=== PATIENT | female | born 1945 | race Caucasian/White ===

== ENCOUNTER 2016-04-07 09:00 | Inpatient (IN) | payer MEDICARE, OTHER ==
[~2016-04-07] VITALS: Ht 160 cm; Wt 129.5 kg
[~2016-04-07 09:00] MED LIST: CO Q-10100 MG PO; COZAAR100 MG PO; CYMBALTA60 MG PO; KLOR-CON 1010 MEQ PO; LEVOTHYROXINE50 MCG PO; LIPITOR40 MG PO; LIPITOR80 MG PO; NIASPAN500 MG PO; NORCO 7.5/325 T1 TA1 PO; NORVASC5 MG PO; OXYBUTYNIN CHLOR5 MG PO; PATADAY2.5 ML EACH EYE; PROTONIX40 MG PO; SINGULAIR10 MG PO; VENTOLIN HFA18 GM INH; VITAMIN D31000 UNIT PO; VOLTAREN100 GM TOPICAL; VOLTAREN100 MG PO; ZANAFLEX4 MG PO
[2016-04-07 09:18] LABS: ANION GAP 13.9 mmol/L (8-16); CALCIUM 9.2 mg/dL (8.5-10.1); CARBON DIOXIDE 28.5 mmol/L (21.0-32.0); CREATININE - SERUM 1.2 mg/dL (0.6-1.3); POTASSIUM - SERUM 3.4 mmol/L (3.5-5.1)
[2016-04-07 10:11] LABS: APTT 34.3 SECONDS (22.8-39.4); INR 0.96 (0.85-1.17); PROTIME 12.6 SECONDS (11.6-15.0)
[2016-04-07 11:50] LABS: APPEARANCE HAZY (CLEAR); BILIRUBIN NEGATIVE (NEGATIVE); COLOR YELLOW (YELLOW); GLUCOSE NEGATIVE (NEGATIVE); KETONE NEGATIVE (NEGATIVE); LEUKOCYTE ESTERASE NEGATIVE (NEGATIVE); NITRITE NEGATIVE (NEGATIVE); PROTEIN NEGATIVE (NEGATIVE); SPECIFIC GRAVITY 1.015 (1.005-1.020)
[2016-04-07 12:48] LABS: BASOPHILS 0.4 % (0.0-2.0); EOSINOPHILS 5.4 % (0-7); HEMATOCRIT 39.2 % (36.0-48.0); HEMOGLOBIN 12.7 g/dL (12-16); IMMATURE GRANULOCYTES 0.1 % (0-5); LYMPHOCYTES 35.6 % (15-50); MCH 31.6 pg (26.0-34.0); MCHC 32.4 g/dL (31.0-37.0); MCV 97.5 fL (80.0-100.0); MEAN PLATELET VOLUME 10.6 fL (7.4-10.4); MONOCYTES 12.7 % (2-11); NEUTROPHILS 45.8 % (40-80); PLATELET COUNT 272 10x3/uL (130-400); RBC 4.02 10x6/uL (4.00-5.40); RDW 13.3 % (11.5-14.5); WBC 7.4 10x3/uL (4.8-10.8)
[2016-04-12] VITALS (13 sets, daily range): BP systolic 83–159; BP diastolic 48–75; Ht 160 cm; Wt 129.5 kg
--- NOTE | 2016-04-12 10:16 | NUR ---
1000: LEFT LEG SCRUBBED WITH HIBICLENS AND ALCHOL PRIOR TO STERILE PREP.
--- NOTE | 2016-04-12 11:45 | NUR ---
RECIEVED PT FROM [facility] AT THIS TIME. REPORT RECIEVED FROM HELADIO HAMILTON. PT AND FAMILY ORIENTED TO ROOM.POST OP VITALS STARTED. BED IN LOW POSITION AND CALL LIGHT WITHIN REACH. WILL CONTINUE TO MONITOR.
--- NOTE | 2016-04-12 16:00 | NUR ---
LYING IN BED,WITHOUT DISTRESS.FAMILY IN ROOM. ASSESSMENT PER ADMIT PACK.
--- NOTE | 2016-04-12 18:00 | NUR ---
CPM MACHINE ON AT THIS TIME. ICE APPLIED TO KNEE
--- NOTE | 2016-04-12 19:45 | NUR ---
PATIENT IN LOW SEMI-FOWLERS. PATIENT STATED SHE IS NOT HAVING ANY PAIN AND DOES NOT NEED ANYTHING AT THIS TIME.
[2016-04-13 01:00] VITALS: BP 135/62
[2016-04-13 05:41] LABS: HEMATOCRIT 29.7 % (36.0-48.0); HEMOGLOBIN 9.7 g/dL (12-16); MCH 30.7 pg (26.0-34.0); MCHC 32.7 g/dL (31.0-37.0); MEAN PLATELET VOLUME 9.6 fL (7.4-10.4); RBC 3.16 10x6/uL (4.00-5.40); RDW 12.8 % (11.5-14.5); WBC 9.8 10x3/uL (4.8-10.8)
[2016-04-13 07:55] VITALS: BP 108/52
--- NOTE | 2016-04-13 08:08 | NUR ---
PT SEEN AT 0740-IV CONVERTED TO SALINE LOCK. COMPLAINTS OF PAIN TO LEFT LEG BUT DOES NOT REQUIRE PAIN MEDS AT THIS TIME. DRESSING NOTED TO LEFT LEFT WITH WOUND VAC-MOVES TOES FREELY AND ARE PINK AND WARM. CURRENTLY IN CPM MACHINE. CPAP OFF AND ON BEDSIDE TABLE. CALL LIGHT IN REACH
--- NOTE | 2016-04-13 08:24 | NUR ---
* Is the patient Alert and Oriented? Yes 0 * How many steps to enter\exit or inside your home? Ramp 0 * PCP Dr. Martinez 0 * Pharmacy [facility] 0 * Preadmission Environment Home with Family 0 * ADLs Independent 0 * Equipment Cane Elevated [place] Seat Rolling Walker Shower Chair 0 * List name and contact numbers for known caregivers / representatives who currently or will assist patient after discharge: Sharron Mccormick [phone] 0 * Additional services required to return to the preadmission environment? Yes 0 * Can the patient safely return to the preadmission environment? Yes 0 * Has this patient been hospitalized within the prior 30 days at any hospital? No 04/13/2016 8:24 DCP: Discharge Planning Patient Name: JOSE C COLEMAN Admission Status: Elective Accout number: [id number] Admission Date: 04-12-2016 : 1945 Admission Diagnosis: Attending: KARAN Current LOS: 1 Anticipated DC Date: 04/14/16 Planned Disposition: Outpatient PT\OT Primary Insurance: MEDICARE A & B Discharge Planning Comments: CM met with patient to assess dc plans/needs. She states she lives with her daughter & her family. She reports, prior to admission, she was independent with all ADL's & IADL's. She has a walker, toilet seat riser, shower chair & several canes. At dc, she will return home with her family. She has chosen [facility] for outpatient physical therapy. Anticipate dc tomorrow afternoon. CM will follow.
--- NOTE | 2016-04-13 08:54 | NUR ---
04/13/2016 8:52 DCP: Discharge Planning OP PT appointment scheduled 04/15 @ 1300. Rx faxed.
[2016-04-13 12:05] VITALS: BP 119/62
[2016-04-13 15:38] VITALS: BP 122/47
--- NOTE | 2016-04-13 19:00 | NUR ---
BEDSIDE REPORT RECEIVED AND CARE OF PT ASSUMED. PT LYING IN SEMI BURRELL'S POSITION WITH LEFT LEG IN CPM AT THIS ASSESSMENT. DRESSING ON LEFT KNEE CLEAN AND DRY. WILL MONITOR FOR NEEDS.
--- NOTE | 2016-04-13 19:52 | NUR ---
PT ASSISTED UP TO USE BSC. POSITIONED BACK IN BED FOR COMFORT AND RE-STARTED CPM.
[2016-04-13 20:00] VITALS: BP 145/53
--- NOTE | 2016-04-13 22:05 | NUR ---
HS MEDICATIONS GIVEN. WILL CONTINUE TO MONITOR FOR NEEDS.
--- NOTE | 2016-04-13 22:59 | NUR ---
GAVE POTASSIUM 40 MEQ LIQUID PER ELECTROLYTE PROTOCOL FOR POTASSIUM LEVEL OF 3.4
--- NOTE | 2016-04-13 23:39 | NUR ---
GAVE OXY IR 10 MG PER PT REQUEST FOR PAIN AT LEVEL 8/10. WILL MONITOR FOR EFFECTIVENESS. CALL LIGHT WITHIN REACH.
[2016-04-14] VITALS: BP 120/48
[2016-04-14 04:00] VITALS: BP 110/55
[2016-04-14 07:30] LABS: ANION GAP 10.2 mmol/L (8-16); CALCIUM 7.5 mg/dL (8.5-10.1); CARBON DIOXIDE 27.1 mmol/L (21.0-32.0); CREATININE - SERUM 1.4 mg/dL (0.6-1.3); POTASSIUM - SERUM 4.3 mmol/L (3.5-5.1)
--- NOTE | 2016-04-14 07:30 | NUR ---
PT AWAKE AND ALERT ORINETED X 3 LUNGS CLAER BILATERAL LEFT TOTAL KNEE WITH WOUND VAC NOTED TO SURGICAL SITE.
--- NOTE | 2016-04-14 07:49 | NUR ---
PATIENT AWAKE, ALERT AND ORIENTED X'S 4. RESPIRATIONS ARE EVEN AND UNLABORED ON ROOM AIR. PATIENT DENIES NEEDS AT THIS TIME. LEFT LEG IN CPM. PATIENT STATED "MY PAIN IS FEELING BETTER. IT WAS REALLY BAD LAST NIGHT. BUT THEY GAVE ME PAIN MEDICATION BEFORE THEY PUT THE CPM ON THIS TIME SO IT IS MUCH BETTER NOW." BED IN LOWEST POSITION, CALL LIGHT IN REACH. BED RIALS UP X'S 2.
[2016-04-14 07:56] VITALS: BP 93/42
[2016-04-14 08:12] LABS: BASOPHILS 0.3 % (0.0-2.0); EOSINOPHILS 2.4 % (0-7); HEMATOCRIT 27.5 % (36.0-48.0); HEMOGLOBIN 8.8 g/dL (12-16); IMMATURE GRANULOCYTES 0.5 % (0-5); LYMPHOCYTES 23.5 % (15-50); MEAN PLATELET VOLUME 10.2 fL (7.4-10.4); MONOCYTES 11.6 % (2-11); NEUTROPHILS 61.7 % (40-80); PLATELET COUNT 213 10x3/uL (130-400); RBC 2.84 10x6/uL (4.00-5.40); RDW 13.3 % (11.5-14.5); WBC 9.2 10x3/uL (4.8-10.8)
[2016-04-14 08:15] LABS: MCV 96.8 fL (80.0-100.0)
--- NOTE | 2016-04-14 10:30 | NUR ---
PT AWAKE AND ALERT ORINETED X 3 LUNGS CLEAR. PT SITTING UP IN CHAIR PER PT PAIN CONTROLLED WITH PO PAIN MEDS.
[2016-04-14 12:02] VITALS: BP 131/50
--- NOTE | 2016-04-14 13:00 | NUR ---
PT SITTING UP IN BED WITH DINNER TRAY PAIN TO BE TREATED WITH PO MEDS PER ORDER
[2016-04-14 15:31] VITALS: BP 130/54
--- NOTE | 2016-04-14 16:00 | NUR ---
NEW ORDER TO ADD OXYCONTIN 10 MG PO Q 12HS FOR PAIN CONTROL
--- NOTE | 2016-04-14 18:55 | NUR ---
PT RESTING IN BED WITH CPM MACHINE IN PLACE PER ORDER
[2016-04-14 20:00] VITALS: BP 152/56
[2016-04-15] VITALS: BP 131/68
--- NOTE | 2016-04-15 02:41 | NUR ---
ASSESSED AT THE BEGINNNING OF THE SHIFT. SHE IS ALERT AND ORIENTED, ABLE TO VERBALIZE NEEDS. WE ARE ASSISTING HER UP TO THE BED SIDE COMMODE TO VOID AND SHE IS DOING WELL GETTING UP. SHE WAS ON THE CPM AT THE FIRST AND IT WILL BE PLACED BACK ON HER THIS MORINING. THERE IS A WOUND VAC CONNECTED TO THE INCISION SITE AND ALL THAT LOOKS GOOD. WE HAVE GIVEN PAIN MEDS REQUESTED AND ORDERED. DURING THE NIGHT SHE IS WEARING C-PAP BUT USES O2 PER N/C DURING THE DAY. THE BED IS LOW, RAILS UP X'S 2 WITH THE CALL LIGHT AT HAND.
[2016-04-15 04:00] VITALS: BP 123/52
[2016-04-15 08:09] VITALS: BP 142/80
--- NOTE | 2016-04-15 08:52 | NUR ---
PT SITTING UP IN CHAIR AT BEDSIDE WALKED WITH PT WITH ROLLING WALKER. PAIN STATED LEVEL 6 TREATED PER ORDER WITH OXY IR PER ORDER.
[2016-04-15] MEDS ORDERED: OXYCODONE HCL5 MG PO (10:27)
[2016-04-15] MEDS ORDERED: ELIQUIS2.5 MG PO (10:28)
--- NOTE | 2016-04-15 10:43 | NUR ---
04/15/2016 10:29 DCP: Discharge Planning Patient Name: JOSE C COLEMAN Encounter No: [id number] : 1945 Primary Insurance: MEDICARE A & B Anticipated DC Date: 04-15-2016 Planned Disposition: Home Health External Planned Provider: [facility] DCP follow-up note: POC discussed with IDT 04/14 - Patient would benefit from a week or two of home health physical therapy prior going to outpatient therapy. Patient and family in agreement with discharge plan. COLE signed 04/14 for [facility]. Referral faxed & called to residential monitor nurse. Philly Hardy
--- NOTE | 2016-04-15 10:43 | NUR ---
04/15/2016 10:29 DCP: Discharge Planning Patient Name: JOSE C COLEMAN Encounter No: [id number] : 1945 Primary Insurance: MEDICARE A & B Anticipated DC Date: 04-15-2016 Planned Disposition: Home Health External Planned Provider: [facility] DCP follow-up note: POC discussed with IDT 04/14 - Patient would benefit from a week or two of home health physical therapy prior going to outpatient therapy. Patient and family in agreement with discharge plan. COLE signed 04/14 for [employer] [facility]. Referral faxed & called to balloon design printer nurse. Philly Hardy
--- NOTE | 2016-04-15 11:26 | NUR ---
PT DISCHARGED AT THIS TIME VIA WHEELCHAIR TO HOME PER PRIVATE VEHICLE. IV CATH D/C WITH TIP INTACT NO BLEEDING NOTED BATTERY PACK APPLIED TO PROVINA WOUND VAC DISCHARGE INSTRUCTIONS GIVEN.
--- NOTE | 2016-04-21 08:03 | OP ---
PATIENT NAME: JOSE C COLEMAN MEDICAL RECORD: [id number] :[birth year] LOCATION:[id number] ADMISSION DATE:04/12/16 SURGEON: VIC MARRUFO MD DATE OF OPERATION: 04/12/2016 PREOPERATIVE DIAGNOSIS: Left knee degenerative joint disease. POSTOPERATIVE DIAGNOSIS: Left knee degenerative joint disease. PROCEDURE PERFORMED: Left total knee arthroplasty. SURGEON: Williams Marrufo MD ANESTHESIA: General with a block for postop pain. CONDITION: She tolerated the procedure well, was transferred to recovery room in stable condition at the termination of procedure. TOURNIQUET TIME: 46 minutes. ESTIMATED BLOOD LOSS: Minimal. INDICATIONS: This is a 71-year-old female with increasing pain in her knee. She is no longer tolerating injections, anti-inflammatories, or therapy. She presents planning to undergo a total knee arthroplasty. We discussed risks, benefits, and alternatives. She understood and wished to proceed. OPERATIVE REPORT: The patient was taken to the operating room, placed in supine position. General anesthesia was obtained. She received a block in the preop holding area. In the operating room, the left knee was confirmed to be the correct knee, following which she was prepped and draped in normal fashion. She did receive Ancef per protocol. After the initial prep and drape, she had a secondary ChloraPrep and Ioban dressing placement. Tourniquet was elevated after exsanguination with an Esmarch. Tourniquet was placed at 350. Midline incision was made followed by a medial parapatellar incision. The patella was everted. The fat pad was excised. The femur was entered with a drill. I then proceeded to place a guide, made a distal femoral cut. The distal femoral cut was sized at a 62.5, the distal femoral cuts were then made for a 62.5 prosthesis. I subluxed the tibia forward, placed the guide, made the proximal tibial cut. I did place the femoral component with the tibial component, took it through a range of motion and marked the rotation. I then punched for a 67 tibia. ____ back side of the patella, measured this at a 31, and drilled the 3 peg holes. Trialed all 3 components which felt appropriate with good motion and no instability. I therefore took everything out, copiously irrigated then cemented into place, 62.5 femur, 67 tibia with the 12 poly ____ cement dried and a 31 three peg hole patellar button. After this was accomplished, she was copiously irrigated. Excess cement was removed. The final 12 poly was placed. She was then irrigated, following which, she was closed with #1 barbed PDS, 2-0 Vicryl, and mckenzie. She had a Prevena dressing placed. She was awakened and transferred to the recovery room in stable condition, having tolerated the procedure well. TRANSINT:[id number] Voice Confirmation ID: [id number] DOCUMENT ID: [id number] OPERATIVE REPORT [id number] JOSE C COLEMAN, VIC STARKS MD at 0803 CC: [id number] DICTATION DATE: 04/12/16 1114 CRISIS THERAPIST: 04/12/16 1125 DIS IN 04/15/[address] [id number]
--- NOTE | 2016-05-11 07:00 | DS ---
PATIENT:JOSE C COLEMAN :[birth year] MEDICAL RECORD: [id number] DISCHARGE SUMMARY ADMISSION DATE: 04/12/16 DISCHARGE DATE: 04/15/16 Admitted to the hospital on 04/12/2016, discharged on 04/15/2016. ADMITTING DIAGNOSIS: Left knee degenerative joint disease. DISCHARGE DIAGNOSES: Left knee degenerative joint disease plus postoperative acute blood loss anemia. HISTORY OF PRESENT ILLNESS: This is a pleasant 71-year-old female with advanced degenerative changes of her knee. She came into the hospital where she underwent a total knee arthroplasty. She overall did very well with the procedure. She was discharged on the . At that juncture, she was going to go with home health services. She is going to continue on total knee arthroplasty protocols. Plan is to see us back in the office in about 2 weeks. Continue on anticoagulant therapy and pain meds DISCHARGE DIAGNOSES: Left knee degenerative joint disease and postoperative acute blood loss anemia. PLAN: See her back in about 2 weeks. She will call if she is having any problems. TRANSINT:[id number] Voice Confirmation ID: [id number] DOCUMENT ID: [id number] VIC ARANA MD at 0700 CC: [id number] DICTATION DATE: 05/10/16 1143 AWNING ERECTOR: 05/10/16 1228 DIS IN 04/15/[address] [address]
== END 2016-04-15 11:27 | disposition home health service (06) | DRG 470 ==
LOC: D.SDCHOLD 04-12 05:45 → D.MS 04-12 05:45 → D.SDCHOLD 04-12 09:00 → D.MS 04-12 09:06 → D.SDCHOLD 04-12 09:15 → D.MS 04-15 11:27
PROVIDERS: Family Medicine; ADMIT Orthopaedic Surgery Sports Medicine
PROC: 0SRD0J9 Replacement of Left Knee Joint with Synthetic Substitute, Cemented, Open Approach (ICD-10-PCS; principal; 2016-04-12 09:15)
DX: M17.12 Unilateral primary osteoarthritis, left knee (principal); D62 Acute posthemorrhagic anemia; I10 Essential (primary) hypertension; E03.9 Hypothyroidism, unspecified; J45.909 Unspecified asthma, uncomplicated; E87.6 Hypokalemia

== ENCOUNTER 2016-09-22 11:51 | Outpatient (CLI) | payer MEDICARE, OTHER ==
[2016-04-12 16:21] VITALS: BMI 50.6
[~2016-09-22 11:51] MED LIST changes: +ELIQUIS2.5 MG PO; +OXYCODONE HCL5 MG PO
== END 2016-09-22 16:36 ==
LOC: D.MAMMO 11:51
DX: Z12.31 Encounter for screening mammogram for malignant neoplasm of breast (principal)

== ENCOUNTER → 2016-11-02 09:28 | Outpatient (CLI) | payer MEDICARE, OTHER ==
[2016-04-12 16:21] VITALS: BMI 50.6
== END | disposition home or self-care (01) ==
LOC: D.MRI 09:28
DX: M54.16 Radiculopathy, lumbar region (principal)

== ENCOUNTER → 2017-07-12 08:10 | Outpatient (CLI) | payer MEDICARE, OTHER ==
[~2017-07-12] VITALS: Ht 160 cm; Wt 115.2 kg
[2017-07-12 09:32] VITALS: Ht 160 cm; Wt 115.2 kg
== END | disposition home or self-care (01) ==
LOC: D.FANS 08:10
DX: E11.9 Type 2 diabetes mellitus without complications (principal)